=== PATIENT | female | born 1975 | race American Indian/Alaskan Native ===

== ENCOUNTER 2016-12-27 18:24 | Emergency (ER) | payer MEDICAID ==
[2016-12-27 21:55] VITALS: BP 120/80
[2016-12-27] MEDS ORDERED: MOTRIN PO ONE (22:00)
--- NOTE | 2016-12-27 22:05 | Emergency Department Report ---
ED Extremity Problem HPI - General Chief complaint: Extremity Injury, Upper Stated complaint: RT HAND MIDDLE FINGER SLAMMED IN DOOR Time Seen by Provider: 12/27/16 21:48 Source: patient Mode of arrival: Ambulatory Limitations: No Limitations - History of Present Illness Initial comments: PT c/o crush injury to R long finger 1 week and 4 days ago. PT states it is still painful and swollen. PT states she has not been seen for this injury before. PT states she has only injury to R little finger that she did not seek medical care about and it did not heal correctly MD Complaint: joint paint -: Sudden, week(s) (1.5 weeks ) Location: right, upper extremity History of Same: Yes (to R little finger ) Severity scale (0 -10): 10 Quality: sharp Consistency: constant Improves with: nothing Worsens with: palpation Associated Symptoms: denies other symptoms - Related Data Previous Rx's Medication Instructions Recorded Last Taken Type Acetaminophen/Codeine [Tylenol #3] 1 tab PO Q6H PRN #12 tab 12/27/16 Unknown Rx Ibuprofen [Motrin] 600 mg PO Q8H PRN #15 tablet 12/27/16 Unknown Rx Allergies Allergy/AdvReac Type Severity Reaction Status Date / Time No Known Allergies Allergy Verified 12/27/16 19:12 ED Review of Systems ROS: Stated complaint: RT HAND MIDDLE FINGER SLAMMED IN DOOR Other details as noted in HPI Comment: All other systems reviewed and negative Genitourinary: denies: abnormal menses (lmp 3-1-17 ) Musculoskeletal: as per HPI Skin: change in color ED Past Medical Hx - Past Medical History Previous Medical History?: No - Surgical History Past Surgical History?: Yes Additional Surgical History: c-sectiona x1 - Medications Home Medications: Home Medications Medication Instructions Recorded Confirmed Last Taken Type Acetaminophen/Codeine [Tylenol #3] 1 tab PO Q6H PRN #12 tab 12/27/16 Unknown Rx Ibuprofen [Motrin] 600 mg PO Q8H PRN #15 tablet 12/27/16 Unknown Rx ED Physical Exam - General Limitations: No Limitations General appearance: alert, in no apparent distress - Head Head exam: Present: atraumatic, normocephalic - Eye Eye exam: Present: normal appearance. Absent: conjunctival injection - ENT ENT exam: Present: normal exam - Neck Neck exam: Present: normal inspection, full ROM - Respiratory Respiratory exam: Absent: respiratory distress - Cardiovascular Cardiovascular Exam: Present: regular rate, normal rhythm - Extremities Exam Extremities exam: Present: tenderness - Expanded Upper Extremity Exam Right Hand Wrist exam: Present: tenderness, ecchymosis, other (R long finger with bruisng and tenderness to the Ulnar side of the DIP joint. pt with colored fake nails. ). Absent: full ROM (decreased due to pain ), laceration, deformity, crepidus, dislocation, nail avulsion - Back Exam Back exam: Present: normal inspection, full ROM - Neurological Exam Neurological exam: Present: alert, oriented X3 - Psychiatric Psychiatric exam: Present: normal affect, normal mood - Skin Skin exam: Present: warm, dry, ecchymosis ED Course Vital Signs 12/27/16 12/27/16 19:08 21:54 Temperature 98.5 F 99.4 F Pulse Rate 80 89 Respiratory 18 18 Rate Blood Pressure 123/84 Blood Pressure 120/80 [Right] O2 Sat by Pulse 98 99 Oximetry - Reevaluation(s) Reevaluation #1: 12/27/16 22:08 PT aware of my interpretation of the XR. PT aware of plan of care. PT has no questions at this time. - Pulse Oximetry Interpretation Digit-Finger Initial Pulse Oximetry Readin Actions Taken: none ED Medical Decision Making - Radiology Data Radiology results: image reviewed interpreted by me: finger - nap - Differential Diagnosis contusion, fracture Critical care attestation.: If time is entered above; I have spent that time in minutes in the direct care of this critically ill patient, excluding procedure time. ED Disposition Clinical Impression: Finger contusion Qualifiers: Encounter type: initial encounter Finger: middle finger Damage to nail status: without damage Laterality: right Qualified Code(s): S60.031A - Contusion of right middle finger without damage to nail, initial encounter Disposition: DISCHARGED TO HOME OR SELFCARE Is pt being admited?: No Does the pt Need Aspirin: No Condition: Stable Instructions: Jammed Finger (ED), Finger Sprain (ED), RICE Therapy (ED) Additional Instructions: No driving or ETOH after Tylenol # 3 Prescriptions: Acetaminophen/Codeine [Tylenol #3] 1 tab PO Q6H PRN #12 tab PRN Reason: Pain , Severe (7-10) Ibuprofen [Motrin] 600 mg PO Q8H PRN #15 tablet PRN Reason: Pain Referrals: PRIMARY CARE, [Primary Care Provider] - 3-5 Days WILEY BARTON MD [Staff Physician] - 3-5 Days Forms: Work/School Release Form(ED) Time of Disposition: 22:10
--- NOTE | 2016-12-28 08:47 | XRay Report ---
Right third finger: No swelling and no obvious fracture or displacement noted. The bony structures appear well mineralized. Impression: Normal exam.
== END 2016-12-27 22:23 | disposition home or self-care (01) ==
LOC: ED 18:24
DX: S60.031A Contusion of right middle finger without damage to nail, initial encounter (principal); W23.0XXA Caught, crushed, jammed, or pinched between moving objects, initial encounter; Y93.89 Activity, other specified; Y99.9 Unspecified external cause status; Y92.89 Other specified places as the place of occurrence of the external cause

== ENCOUNTER 2017-01-30 18:10 | Emergency (ER) | payer MEDICAID ==
[2017-01-30 18:34] VITALS: BP 117/84
== END 2017-01-30 21:00 | disposition left against medical advice (07) ==
LOC: ED 18:10
DX: M25.551 Pain in right hip (principal); Z53.21 Procedure and treatment not carried out due to patient leaving prior to being seen by health care provider

== ENCOUNTER 2017-03-13 14:23 | Emergency (ER) | payer MEDICAID ==
[2017-03-13] MEDS ORDERED: BICILLIN L-A IM ONE (14:40)
[2017-03-13 14:42] VITALS: BP 130/86
--- NOTE | 2017-03-13 14:42 | Emergency Department Report ---
<DEIDREADELA M - Last Filed: 03/13/17 14:38> ED ENT HPI - General Chief complaint: Sore Throat Stated complaint: POSS STREP THROAT Time Seen by Provider: 03/13/17 14:36 Source: patient Mode of arrival: Ambulatory Limitations: No Limitations - History of Present Illness Initial comments: PT c/o sore throat since Monday. PT states she thought she was getting a cold but then she looked at her throat and she noticed white bumps on her tonsils. Onset/Timin -: Gradual, days(s) Location: throat Severity: severe Severity scale (0 -10): 9 Quality: aching, sharp, constant Worsens with: swallowing, eating Associated Symptoms: cough, pain with swallowing, sore throat. denies: fever - Related Data Previous Rx's Medication Instructions Recorded Last Taken Type Acetaminophen/Codeine [Tylenol #3] 1 tab PO Q6H PRN #12 tab 12/27/16 Unknown Rx Ibuprofen [Motrin] 600 mg PO Q8H PRN #15 tablet 12/27/16 Unknown Rx Allergies Allergy/AdvReac Type Severity Reaction Status Date / Time No Known Allergies Allergy Verified 12/27/16 19:12 ED Dental HPI - General Stated complaint: POSS STREP THROAT Time Seen by Provider: 03/13/17 14:36 - Related Data Previous Rx's Medication Instructions Recorded Last Taken Type Acetaminophen/Codeine [Tylenol #3] 1 tab PO Q6H PRN #12 tab 12/27/16 Unknown Rx Ibuprofen [Motrin] 600 mg PO Q8H PRN #15 tablet 12/27/16 Unknown Rx Allergies Allergy/AdvReac Type Severity Reaction Status Date / Time No Known Allergies Allergy Verified 12/27/16 19:12 ED Review of Systems ROS: Stated complaint: POSS STREP THROAT Other details as noted in HPI Comment: All other systems reviewed and negative Constitutional: denies: fever ENT: throat pain. denies: congestion Respiratory: cough (occasional, hurts throat to cough ), other (sneezing ) Gastrointestinal: denies: abdominal pain, nausea, vomiting, diarrhea ED Past Medical Hx - Past Medical History Hx Hypertension: Yes Hx Diabetes: Yes - Surgical History Additional Surgical History: c-sectiona x1 - Social History Smoking Status: Current Some Day Smoker Substance Use Type: Alcohol - Medications Home Medications: Home Medications Medication Instructions Recorded Confirmed Last Taken Type Acetaminophen/Codeine [Tylenol #3] 1 tab PO Q6H PRN #12 tab 12/27/16 Unknown Rx Ibuprofen [Motrin] 600 mg PO Q8H PRN #15 tablet 12/27/16 Unknown Rx ED Physical Exam - General Limitations: No Limitations, Language Barrier General appearance: alert, in no apparent distress - Head Head exam: Present: atraumatic, normocephalic, normal inspection - Eye Eye exam: Present: normal appearance, PERRL, EOMI. Absent: conjunctival injection - ENT ENT exam: Present: mucous membranes moist, normal external ear exam - Expanded ENT Exam Expanded Mouth exam: Present: normal external inspection. Absent: drooling, trismus Throat exam: Positive: tonsillomegaly, tonsillar exudate. Negative: R peritonsillar mass, L peritonsillar mass - Neck Neck exam: Present: normal inspection, tenderness, full ROM, lymphadenopathy - Respiratory Respiratory exam: Present: normal lung sounds bilaterally, other (no cough noted ). Absent: respiratory distress, wheezes, rhonchi - Cardiovascular Cardiovascular Exam: Present: regular rate, normal rhythm, normal heart sounds - GI/Abdominal GI/Abdominal exam: Present: soft. Absent: tenderness - Extremities Exam Extremities exam: Present: normal inspection, full ROM - Back Exam Back exam: Present: normal inspection, full ROM - Neurological Exam Neurological exam: Present: alert, oriented X3 - Psychiatric Psychiatric exam: Present: normal affect, normal mood - Skin Skin exam: Present: warm, dry, intact, normal color ED Course Vital Signs 03/13/17 14:37 Temperature 98.3 F Pulse Rate 100 H Respiratory 16 Rate Blood Pressure 130/86 O2 Sat by Pulse 100 Oximetry - Reevaluation(s) Reevaluation #1: 03/13/17 14:43 PT aware of dx and plan of care. PT has no questions at this time. Critical care attestation.: If time is entered above; I have spent that time in minutes in the direct care of this critically ill patient, excluding procedure time. ED Disposition Disposition: TO HOME OR SELFCARE Is pt being admited?: No Does the pt Need Aspirin: No Condition: Stable Instructions: Pharyngitis (ED), Tonsillitis (ED) Referrals: TORI DOMINGO MD [Staff Physician] - 3-5 Days Time of Disposition: :42 <ERWIN KHAN - Last Filed: 03/14/17 19:30> ED Medical Decision Making - Medical Decision Making Patient received Bicillin IM
== END 2017-03-13 15:11 | disposition home or self-care (01) ==
LOC: ED 14:23
DX: J02.9 Acute pharyngitis, unspecified (principal); I10 Essential (primary) hypertension; E11.9 Type 2 diabetes mellitus without complications; Z72.0 Tobacco use
CPT/HCPCS: 96372; 99282; J0561

== ENCOUNTER 2017-03-16 19:40 | Emergency (ER) | payer MEDICAID ==
[2017-03-16 19:57] VITALS: BP 124/81
== END 2017-03-16 21:55 | disposition left against medical advice (07) ==
LOC: ED 19:40
DX: R07.0 Pain in throat (principal); Z53.21 Procedure and treatment not carried out due to patient leaving prior to being seen by health care provider

== ENCOUNTER 2018-07-04 16:16 | Emergency (ER) | payer MEDICAID ==
[2018-07-04 16:27] VITALS: BP 127/81
[2018-07-04] MEDS ORDERED: ZOFRAN IV ONE (19:30)
[2018-07-04] MEDS ORDERED: NACL 0.9% 1000 ML 1,000 ML IV ONE (19:30)
[2018-07-04] MEDS ORDERED: DECADRON IV STA (19:30)
--- NOTE | 2018-07-04 19:30 | Emergency Department Report ---
ED Headache HPI - General Chief Complaint: Headache Stated Complaint: HEAD PAIN,STOMACH PAIN Time Seen by Provider: 07/04/18 19:18 Source: patient, family Exam Limitations: no limitations - History of Present Illness Initial Comments: Patient complain of right-sided headache at her [employer] that started this morning at 7:30. She states it is a throbbing pain pain is not relieved with Motrin and Excedrin. She says she has not had a headache like this in the process. Report nausea. Reports some blurred vision this morning but none now. Denies any loss of vision . She states she saw her doctor on Monday and told him about it while she was getting fitted for glasses. no action taken per patient. Agencies says she is a diabetic and she takes metformin and her blood sugar is high at 20 care blood sugar today is 162 in triage. Last menstrual cycle was 07/02/2018. Pain is 8/10 and achy. No alleviating or exacerbating factors. Denies any fever or chills or neck pain or stiffness. Denies any dizziness or vomiting. Denies any sore throat, shortness of breath or chest pain. Timing/Duration: constant, other (7:30 this morning) Quality: severe, achy Head Injury Location: temporal (right) Recent Head Trauma: occasional headaches Modifying Factors: improves with: other (none) Associated Symptoms: denies: confusion, fatigue, facial pain, fever/chills, flushing, loss of consciousness, nausea/vomiting, nasal congestion, nasal drainage, numbness in legs/feet, rash, seizures, sinus infection, stiff neck, vision changes, weakness Allergies/Adverse Reactions: Allergies No Known Allergies Allergy (Verified 12/27/16 19:12) Home Medications: Ambulatory Orders Acetaminophen/Codeine [Tylenol #3] 1 tab PO Q6H PRN #12 tab 12/27/16 Ibuprofen [Motrin] 600 mg PO Q8H PRN #15 tablet 12/27/16 Butalb/Acetaminophen/Caffeine [Fioricet 50-300-40 mg CAP] 1 - 2 cap PO Q6HR PRN #24 cap 07/04/18 Ondansetron [Zofran Odt] 8 mg PO Q8H PRN #30 tab.rapdis 07/04/18 ED Review of Systems ROS: Stated complaint: HEAD PAIN,STOMACH PAIN Other details as noted in HPI Constitutional: denies: chills, fever Eyes: denies: eye pain, eye discharge ENT: denies: ear pain, throat pain, congestion Respiratory: denies: cough, shortness of breath, SOB with exertion, SOB at rest , stridor, wheezing Cardiovascular: denies: chest pain, palpitations, dyspnea on exertion, edema, syncope Gastrointestinal: denies: abdominal pain, nausea, diarrhea Musculoskeletal: denies: back pain, joint swelling, arthralgia, myalgia Skin: denies: rash, lesions Neurological: denies: headache, weakness, paresthesias, abnormal gait ED Past Medical Hx - Past Medical History Previous Medical History?: Yes Hx Hypertension: Yes Hx Diabetes: Yes Hx GERD: Yes Additional medical history: STREPT - Surgical History Past Surgical History?: Yes Additional Surgical History: c-sectiona x1 - Family History Family history: hypertension - Social History Smoking Status: Current Some Day Smoker Substance Use Type: None - Medications Home Medications: Home Medications Medication Instructions Recorded Confirmed Last Taken Type Acetaminophen/Codeine [Tylenol #3] 1 tab PO Q6H PRN #12 tab 12/27/16 Unknown Rx Ibuprofen [Motrin] 600 mg PO Q8H PRN #15 tablet 12/27/16 Unknown Rx Butalb/Acetaminophen/Caffeine 1 - 2 cap PO Q6HR PRN #24 cap 07/04/18 Unknown Rx [Fioricet 50-300-40 mg CAP] Ondansetron [Zofran Odt] 8 mg PO Q8H PRN #30 tab.rapdis 07/04/18 Unknown Rx ED Physical Exam - General Limitations: No Limitations General appearance: alert, in no apparent distress - Head Head exam: Present: atraumatic, normocephalic, normal inspection, other (normal exam) - Eye Eye exam: Present: normal appearance, PERRL, EOMI. Absent: nystagmus, periorbital swelling, periorbital tenderness Pupils: Present: normal accommodation - ENT ENT exam: Present: normal exam, normal orophraynx, mucous membranes moist, TM's normal bilaterally, normal external ear exam, other (maxillary frontal sinuses nontender to palpate. Nasal mucosa normal exam) - Neck Neck exam: Present: normal inspection, full ROM, other (no C-spine tenderness). Absent: tenderness, meningismus, lymphadenopathy, thyromegaly - Respiratory Respiratory exam: Present: normal lung sounds bilaterally. Absent: respiratory distress, chest wall tenderness - Cardiovascular Cardiovascular Exam: Present: regular rate, normal rhythm, normal heart sounds. Absent: systolic murmur, diastolic murmur - GI/Abdominal GI/Abdominal exam: Present: soft, normal bowel sounds. Absent: distended, tenderness, guarding, rebound, rigid, organomegaly, mass - Extremities Exam Extremities exam: Present: normal inspection, full ROM, normal capillary refill , other (No cce. + 2 pulses in all extremities, no neurovascular compromise). Absent: tenderness, pedal edema, joint swelling, calf tenderness - Back Exam Back exam: Present: normal inspection, full ROM, other (ambulates without any difficulties). Absent: tenderness, CVA tenderness (R), CVA tenderness (L), muscle spasm, paraspinal tenderness, vertebral tenderness, rash noted - Neurological Exam Neurological exam: Present: alert, oriented X3, normal gait, reflexes normal. Absent: motor sensory deficit - Expanded Neurological Exam Expanded Neurological exam: Absent: innattentive, memory loss-remote event, memory loss- recent event, ataxia, receptive aphasia, expressive aphasia, total aphasia, tremor Patient oriented to: Present: person, place, time Speech: Present: fluid speech Cranial nerves: EOM's Intact: Normal, Gag Reflex: Normal, Tongue Deviation: Normal, Nystagmus: Normal, Facial Sensation: Normal Cerebellar function: Romberg: Normal Upper motor neuron: Pronator Drift: Normal, Sensory Extinction: Normal Sensory exam: Upper Extremity Light Touch: Normal, Upper Extremity Temperature: Normal, Lower Extremity Light Touch: Normal, Lower Extremity Temperature: Normal Motor strength exam: RUE: 5, LUE: 5, RLE: 5, LLE: 5 Best Eye Response (Joan): (4) open spontaneously Best Motor Response (Joan): (6) obeys commands Best Verbal Response (Joan): (5) oriented [place] Total: 15 - Psychiatric Psychiatric exam: Present: normal affect, normal mood - Skin Skin exam: Present: warm, dry, intact, normal color. Absent: rash ED Course Vital Signs 07/04/18 16:21 Temperature 98.0 F Pulse Rate 81 Respiratory 16 Rate Blood Pressure 127/81 O2 Sat by Pulse 100 Oximetry - Reevaluation(s) Reevaluation #1: 07/04/18 21:30 Patient given Fioricet 2 tablets, Zofran 4 mg IV, Decadron 10 mg IV and 1 L normal saline. No change in neurological status. CT scan is stable and she says she feels better. ED Medical Decision Making - Radiology Data Radiology results: report reviewed CT scan of the head and brain without IV contrast shows no acute findings. Patient: VICTORIA DUGAN MR#: [id number] : 1975 Acct:[id number] Age/Sex: 42 / F ADM Date: 07/04/18 Loc: ED Attending Dr: Ordering Physician: BHARAT ABRAHAM Date of Service: 07/04/18 Procedure(s): CT head/brain wo con Accession Number(s): [id number] cc: BHARAT ABRAHAM FINAL REPORT PROCEDURE: CT HEAD/BRAIN WO CON TECHNIQUE: Computerized tomography of the head was performed without contrast material. HISTORY: headache. COMPARISON: No prior studies are available for comparison. FINDINGS: Skull and scalp: Normal. Paranasal sinuses: Normal. Ventricles and subarachnoid spaces: There is no hydrocephalus or asymmetry.. Cerebrum: No evidence of hemorrhage, acute infarction or mass . Cerebellum and brainstem: No evidence of hemorrhage, acute infarction or mass. Vasculature: Normal. Comments: None. IMPRESSION: There is no acute intracranial abnormality. Transcribed By: CO Dictated By: DARCY WOOD MD Electronically Authenticated By: DARCY WOOD MD Signed Date/Time: 07/04/182046 DD/ 46 TD/TT: 07/04/182046 - Medical Decision Making 42-year-old female here with right temporal headache that she says started at 7: [address] scan of head/brain revealed no acute intracranial or extracranial abdomen mild distress. Assessment/plan Headache-better with Fioricet 2 tablets, Zofran 4 mg IV and Decadron 10 mg IV. Patient will be discharged home on Fioricet and Zofran. She also receive 1 L of normal saline in the emergency room. Patient referred to neurologist since her primary care doctor which she does have one. I discussed the CT scan results, diagnosis and treatment plan and she was understanding. She knows that if her symptoms return to return to the emergency room otherwise follow-up with her primary care neurologist and she agrees. Patient discharged home a prescription for Fioricet and Zofran. - Differential Diagnosis intracranial versus extracranial abnormality, simple headache Critical care attestation.: If time is entered above; I have spent that time in minutes in the direct care of this critically ill patient, excluding procedure time. ED Disposition Clinical Impression: Headache Qualifiers: Headache type: unspecified Headache chronicity pattern: acute headache Intractability: not intractable Qualified Code(s): R51 - Headache Disposition: DC- TO HOME OR SELFCARE Is pt being admited?: No Does the pt Need Aspirin: No Condition: Stable Instructions: Acute Headache (ED) Additional Instructions: Please follow-up with neurologist as instructed. Follow-up Primary care physician in 2 days Take Fioricet and Zofran for headache and nausea. If he condition worsens, return to the emergency room Prescriptions: Butalb/Acetaminophen/Caffeine [Fioricet 50-300-40 mg CAP] 1 - 2 cap PO Q6HR PRN #24 cap PRN Reason: Headache Ondansetron [Zofran Odt] 8 mg PO Q8H PRN #30 tab.rapdis PRN Reason: Nausea And Vomiting Referrals: PRIMARY CARE, [Primary Care Provider] - 07/06/18 CAN MCGREGOR MD [Staff Physician] - 07/06/18 Forms: Work/School Release Form(ED)
[2018-07-04] MEDS ORDERED: FIORICET PO ONE (19:31)
--- NOTE | 2018-07-04 20:48 | Cat Scan Report ---
FINAL REPORT PROCEDURE: CT HEAD/BRAIN WO CON TECHNIQUE: Computerized tomography of the head was performed without contrast material. HISTORY: headache. COMPARISON: No prior studies are available for comparison. FINDINGS: Skull and scalp: Normal. Paranasal sinuses: Normal. Ventricles and subarachnoid spaces: There is no hydrocephalus or asymmetry.. Cerebrum: No evidence of hemorrhage, acute infarction or mass . Cerebellum and brainstem: No evidence of hemorrhage, acute infarction or mass. Vasculature: Normal. Comments: None. IMPRESSION: There is no acute intracranial abnormality.
== END 2018-07-04 21:43 | disposition home or self-care (01) ==
LOC: ED 16:16
DX: R51 Headache (principal); I10 Essential (primary) hypertension; E11.9 Type 2 diabetes mellitus without complications; K21.9 Gastro-esophageal reflux disease without esophagitis; F17.200 Nicotine dependence, unspecified, uncomplicated
CPT/HCPCS: 70450; 82962; 96374; 96375; 99284; J1100; J2405; J7030

== ENCOUNTER 2018-10-04 15:21 | Emergency (ER) | payer MEDICAID ==
[2018-10-04 16:57] LABS: Basophils % (Auto) 0.2 % (0.0-1.8); Eosinophils # (Auto) 0.1 K/mm3 (0.0-0.4); Eosinophils % (Auto) 0.6 % (0.0-4.3); Hematocrit 31.3 % (30.3-42.9); Lymphocytes # (Auto) 0.7 K/mm3 (1.2-5.4); Mean Corpuscular HGB Conc 32 % (30-34); Mean Corpuscular Volume 82 fl (79-97); Monocytes # (Auto) 0.5 K/mm3 (0.0-0.8); Monocytes % (Auto) 4.4 % (0.0-7.3); Platelet Count 365 K/mm3 (140-440); Red Blood Count 3.84 M/mm3 (3.65-5.03); Red Cell Distribution Width 16.9 % (13.2-15.2)
[2018-10-04 17:26] LABS: Alanine Aminotransferase 23 units/L (7-56); BUN/Creatinine Ratio 6; Blood Urea Nitrogen 4 mg/dL (7-17); Calcium 9.2 mg/dL (8.4-10.2); Hemolysis Index 2
[2018-10-04 17:32] LABS: Bilirubin,Urine NEG (Negative); Color,Urine Straw (Yellow)
[2018-10-04 17:33] LABS: Bacteria,Urine 1+ /HPF (Negative); Blood,Urine MOD (Negative); Protein,Urine <15 mg/dL mg/dL (Negative); Urobilinogen,Urine < 2.0 mg/dL (<2.0)
[2018-10-04 17:36] LABS: HCG Qualitative,Urine Negative (Negative); WBC,Urine > 182.0 /HPF (0.0-6.0)
[2018-10-04 18:49] VITALS: BP 153/92
[2018-10-04] MEDS ORDERED: BACTRIM DS PO ONE (19:18)
[2018-10-04] MEDS ORDERED: TYLENOL/CODEINE PO ONE (19:18)
--- NOTE | 2018-10-04 19:21 | Emergency Department Report ---
ED Female HPI - General Chief complaint: Abdominal Pain Stated complaint: FLU LIKE SX Time Seen by Provider: 10/04/18 19:10 Source: patient Mode of arrival: Ambulatory Limitations: No Limitations - History of Present Illness Initial comments: This is a 43-year-old female who presents ED complaining of urinary frequency urgency one week. Patient states that she is pain with urination for the past weakness got worse. Patient states she also saw this drops of blood in urine. Patient is also complaining of body aches generalized and a dry nonproductive cough. She denies fevers/chills/nausea vomiting and diarrhea. Denies vaginal discharge/vaginal bleed. MD Complaint: dysuria - Related Data Previous Rx's Medication Instructions Recorded Last Taken Type Acetaminophen/Codeine [Tylenol #3] 1 tab PO Q6H PRN #12 tab 12/27/16 Unknown Rx Butalb/Acetaminophen/Caffeine 1 - 2 cap PO Q6HR PRN #24 cap 07/04/18 Unknown Rx [Fioricet 50-300-40 mg CAP] Ondansetron [Zofran Odt] 8 mg PO Q8H PRN #30 tab.rapdis 07/04/18 Unknown Rx Dextromethorphan HBr [Tussin Cough] 15 mg PO TID #80 ml 10/04/18 Unknown Rx Ibuprofen [Motrin 600 MG tab] 600 mg PO Q8H PRN #15 tablet 10/04/18 Unknown Rx Phenazopyridine [Pyridium] 200 mg PO BID #10 tab 10/04/18 Unknown Rx Sulfamethoxazole/Trimethoprim 1 each PO BID #14 tablet 10/04/18 Unknown Rx [Bactrim DS TAB] Allergies Allergy/AdvReac Type Severity Reaction Status Date / Time No Known Allergies Allergy Verified 12/27/16 19:12 ED Review of Systems ROS: Stated complaint: FLU LIKE SX Other details as noted in HPI Comment: All other systems reviewed and negative Constitutional: denies: chills, fever, malaise Genitourinary: urgency, dysuria, frequency, hematuria. denies: discharge, dyspareunia ED Past Medical Hx - Past Medical History Previous Medical History?: Yes Hx Hypertension: Yes Hx Diabetes: Yes Hx GERD: Yes Additional medical history: STREPT - Surgical History Past Surgical History?: Yes Additional Surgical History: c-sectiona x1 - Social History Smoking Status: Never Smoker Substance Use Type: None - Medications Home Medications: Home Medications Medication Instructions Recorded Confirmed Last Taken Type Acetaminophen/Codeine [Tylenol #3] 1 tab PO Q6H PRN #12 tab 12/27/16 Unknown Rx Butalb/Acetaminophen/Caffeine 1 - 2 cap PO Q6HR PRN #24 cap 07/04/18 Unknown Rx [Fioricet 50-300-40 mg CAP] Ondansetron [Zofran Odt] 8 mg PO Q8H PRN #30 tab.rapdis 07/04/18 Unknown Rx Dextromethorphan HBr [Tussin Cough] 15 mg PO TID #80 ml 10/04/18 Unknown Rx Ibuprofen [Motrin 600 MG tab] 600 mg PO Q8H PRN #15 tablet 10/04/18 Unknown Rx Phenazopyridine [Pyridium] 200 mg PO BID #10 tab 10/04/18 Unknown Rx Sulfamethoxazole/Trimethoprim 1 each PO BID #14 tablet 10/04/18 Unknown Rx [Bactrim DS TAB] ED Physical Exam - General Limitations: No Limitations General appearance: alert, in no apparent distress - Head Head exam: Present: atraumatic, normocephalic - Eye Eye exam: Present: normal appearance - ENT ENT exam: Present: mucous membranes moist - Neck Neck exam: Present: normal inspection - Respiratory Respiratory exam: Present: normal lung sounds bilaterally. Absent: respiratory distress - Cardiovascular Cardiovascular Exam: Present: regular rate, normal rhythm. Absent: systolic murmur, diastolic murmur, rubs, gallop - GI/Abdominal GI/Abdominal exam: Present: soft, normal bowel sounds - Extremities Exam Extremities exam: Present: normal inspection - Back Exam Back exam: Present: normal inspection - Neurological Exam Neurological exam: Present: alert, oriented X3 - Psychiatric Psychiatric exam: Present: normal affect, normal mood - Skin Skin exam: Present: warm, dry, intact, normal color. Absent: rash ED Course Vital Signs 10/04/18 10/04/18 15:49 18:48 Temperature 98.4 F 99.0 F Pulse Rate 115 H 117 H Respiratory 18 18 Rate Blood Pressure 142/95 Blood Pressure 153/92 [Left] O2 Sat by Pulse 97 98 Oximetry ED Medical Decision Making - Lab Data Result diagrams: 10/04/18 16:19 10/04/18 16:19 Laboratory Last Values WBC 10.4 K/mm3 (4.5-11.0) 10/04/18 16:19 RBC 3.84 M/mm3 (3.65-5.03) 10/04/18 16:19 Hgb 10.0 gm/dl (10.1-14.3) L 10/04/18 16:19 Hct 31.3 % (30.3-42.9) 10/04/18 16:19 MCV 82 fl (79-97) 10/04/18 16:19 MCH 26 pg (28-32) L 10/04/18 16:19 MCHC 32 % (30-34) 10/04/18 16:19 RDW 16.9 % (13.2-15.2) H 10/04/18 16:19 Plt Count 365 K/mm3 (140-440) 10/04/18 16:19 Lymph % (Auto) 7.0 % (13.4-35.0) L 10/04/18 16:19 [place] % (Auto) 4.4 % (0.0-7.3) 10/04/18 16:19 Eos % (Auto) 0.6 % (0.0-4.3) 10/04/18 16:19 Baso % (Auto) 0.2 % (0.0-1.8) 10/04/18 16:19 Lymph # 0.7 K/mm3 (1.2-5.4) L 10/04/18 16:19 [place] # 0.5 K/mm3 (0.0-0.8) 10/04/18 16:19 Eos # 0.1 K/mm3 (0.0-0.4) 10/04/18 16:19 Baso # 0.0 K/mm3 (0.0-0.1) 10/04/18 16:19 Seg Neutrophils % 87.8 % (40.0-70.0) H 10/04/18 16:19 Seg Neutrophils # 9.2 K/mm3 (1.8-7.7) H 10/04/18 16:19 Sodium 135 mmol/L (137-145) L 10/04/18 16:19 Potassium 3.4 mmol/L (3.6-5.0) L 10/04/18 16:19 Chloride 88.4 mmol/L (98-107) L 10/04/18 16:19 Carbon Dioxide 30 mmol/L (22-30) 10/04/18 16:19 Anion Gap 20 mmol/L 10/04/18 16:19 BUN 4 mg/dL (7-17) L 10/04/18 16:19 Creatinine 0.7 mg/dL (0.7-1.2) 10/04/18 16:19 Estimated GFR > 60 ml/min 10/04/18 16:19 BUN/Creatinine Ratio 6 % 10/04/18 16:19 Glucose 187 mg/dL (65-100) H 10/04/18 16:19 Calcium 9.2 mg/dL (8.4-10.2) 10/04/18 16:19 Total Bilirubin 0.70 mg/dL (0.1-1.2) 10/04/18 16:19 AST 34 units/L (5-40) 10/04/18 16:19 ALT 23 units/L (7-56) 10/04/18 16:19 Alkaline Phosphatase 157 units/L (35-129) H 10/04/18 16:19 Total Protein 7.7 g/dL (6.3-8.2) 10/04/18 16:19 Albumin 4.0 g/dL (3.9-5) 10/04/18 16:19 Albumin/Globulin Ratio 1.1 % 10/04/18 16:19 Urine Color Straw (Yellow) 10/04/18 17:00 Urine Turbidity Clear (Clear) 10/04/18 17:00 Urine pH 8.0 (5.0-7.0) H 10/04/18 17:00 Ur Specific [place] 1.004 (1.003-1.030) 10/04/18 17:00 Urine Protein <15 mg/dl mg/dL (Negative) 10/04/18 17:00 Urine Glucose (UA) Neg mg/dL (Negative) 10/04/18 17:00 Urine Ketones Neg mg/dL (Negative) 10/04/18 17:00 Urine Blood Mod (Negative) 10/04/18 17:00 Urine Nitrite Neg (Negative) 10/04/18 17:00 Urine Bilirubin Neg (Negative) 10/04/18 17:00 Urine Urobilinogen < 2.0 mg/dL (<2.0) 10/04/18 17:00 Ur Leukocyte Esterase Lg (Negative) 10/04/18 17:00 Urine WBC (Auto) > 182.0 /HPF (0.0-6.0) H 10/04/18 17:00 Urine RBC (Auto) 4.0 /HPF (0.0-6.0) 10/04/18 17:00 U Epithel Cells (Auto) 1.0 /HPF (0-13.0) 10/04/18 17:00 Urine Bacteria (Auto) 1+ /HPF (Negative) 10/04/18 17:00 Urine HCG, Qual Negative (Negative) 10/04/18 17:00 - Medical Decision Making 43-year-old female presents with a bacterial urinary tract infection ED course: Patient received an antibiotic dose and Tylenol with codeine during ED stay Urinalysis is positive for bacteria, WBC, leukocyte esterase I discussed this findings with the patient. Discussed increase hydration with the patient. I discussed the patient to make sure she completes all of the antibiotic dose even until symptoms resolve. I discussed with the patient on Pyridium will turn his urine orangeish color but will stop once he stops taking pyridium Patient is in no acute distress, patient also has on instructions were given to him. He had on exam for ED stay. Critical care attestation.: If time is entered above; I have spent that time in minutes in the direct care of this critically ill patient, excluding procedure time. ED Disposition Clinical Impression: UTI (urinary tract infection), Dysuria Disposition: - TO HOME OR SELFCARE Is pt being admited?: No Does the pt Need Aspirin: No Condition: Stable Instructions: Abdominal Pain (ED), Dysuria (ED), Urinary Tract Infection in Women (ED), Viral Syndrome (ED) Additional Instructions: Make sure to follow up with the primary care physician as discussed. Take all your medications as you've been prescribed. If you have any worsening symptoms or develop new symptoms please return to ED immediately. Prescriptions: Dextromethorphan HBr [Tussin Cough] 15 mg PO TID #80 ml Ibuprofen [Motrin 600 MG tab] 600 mg PO Q8H PRN #15 tablet PRN Reason: Pain Phenazopyridine [Pyridium] 200 mg PO BID #10 tab Sulfamethoxazole/Trimethoprim [Bactrim DS TAB] 1 each PO BID #14 tablet Referrals: PRIMARY CARE, [Primary Care Provider] - 3-5 Days [facility] [Outside] - 3-5 Days [facility] [Outside] - 3-5 Days Forms: Work/School Release Form(ED) Time of Disposition: 20:18
[2018-10-04] MEDS ORDERED: PYRIDIUM PO ONE (19:30)
== END 2018-10-04 20:40 | disposition home or self-care (01) ==
LOC: ED 15:21
DX: N39.0 Urinary tract infection, site not specified (principal); I10 Essential (primary) hypertension; E11.9 Type 2 diabetes mellitus without complications; K21.9 Gastro-esophageal reflux disease without esophagitis
CPT/HCPCS: 36415; 80053; 81001; 81025; 85025; 99283

== ENCOUNTER 2018-10-30 10:59 | Outpatient (CLI) | payer MEDICAID ==
[2018-10-30 11:42] LABS: Hematocrit 31.1 % (30.3-42.9); Hemoglobin 9.6 gm/dl (10.1-14.3); Mean Corpuscular HGB Conc 31 % (30-34); Mean Corpuscular Volume 81 fl (79-97); Platelet Count 314 K/mm3 (140-440); Red Blood Count 3.84 M/mm3 (3.65-5.03); Red Cell Distribution Width 17.2 % (13.2-15.2)
[2018-10-30 12:06] LABS: Alanine Aminotransferase 17 units/L (7-56); Albumin 4.2 g/dL (3.9-5); BUN/Creatinine Ratio 8; Blood Urea Nitrogen 6 mg/dL (7-17); Hemolysis Index 0
--- NOTE | 2018-10-30 13:12 | Ultrasound Report ---
ULTRASOUND RENAL BILATERAL ULTRASOUND BLADDER RESIDUAL HISTORY: Abnormal results of kidney function studies. TECHNIQUE: transabdominal ultrasound with color Doppler interrogation. FINDINGS: The right kidney measures 10.5 x 4.8 x 5.1cm. Right renal cortex: 1.4cm. The left kidney measures 10.8 x 5.7 x 5.8cm. Left renal cortex: 1.4cm. Scans of the kidneys show normal renal contours. There is normal central calyceal clustering and good preservation of the cortical thickness. There is no evidence of mass or hydronephrosis. The views of the bladder and the region of the ureters appear normal. Prevoid bladder volume measures 328 cc. Postvoid residual measures 28 cc. IMPRESSION: Unremarkable renal ultrasound. Small postvoid residual measuring 28 cc.
[2018-10-30 16:05] LABS: Hepatitis B Surface Antigen Non-Reactive (Negative); Hepatitis C Virus Antibody Non-Reactive (NonReactive)
[2018-11-01 21:59] LABS: ANA Screen, IFA Positive (Negative)
[2018-11-03 11:45] LABS: Myeloperoxidase Antibody <1.0 AI (<1.0)
== END 2018-10-30 11:00 | disposition home or self-care (01) ==
LOC: US 10:59
PROVIDERS: ATTEND Internal Medicine
DX: R94.4 Abnormal results of kidney function studies (principal); E11.22 Type 2 diabetes mellitus with diabetic chronic kidney disease; I12.9 Hypertensive chronic kidney disease with stage 1 through stage 4 chronic kidney disease, or unspecified chronic kidney disease; N18.9 Chronic kidney disease, unspecified; N39.0 Urinary tract infection, site not specified; R31.9 Hematuria, unspecified; K21.9 Gastro-esophageal reflux disease without esophagitis
CPT/HCPCS: 36415; 76770; 76857; 80053; 80074; 85027; 86021; 86038; 86706; 89050

== ENCOUNTER 2019-03-11 11:46 | Outpatient (CLI) | payer MEDICAID ==
[2019-03-11 12:32] LABS: Hematocrit 29.2 % (30.3-42.9); Hemoglobin 9.2 gm/dl (10.1-14.3); Mean Corpuscular HGB Conc 31 % (30-34); Mean Corpuscular Volume 74 fl (79-97); Platelet Count 328 K/mm3 (140-440); Red Blood Count 3.95 M/mm3 (3.65-5.03); Red Cell Distribution Width 17.1 % (13.2-15.2)
[2019-03-11 12:35] LABS: Bacteria,Urine 1+ /HPF (Negative); Bilirubin,Urine NEG (Negative); Blood,Urine SM (Negative); Color,Urine Straw (Yellow); Hyaline Casts,Urine 1 /LPF; Protein,Urine <15 mg/dL mg/dL (Negative); Urobilinogen,Urine < 2.0 mg/dL (<2.0)
[2019-03-11 12:57] LABS: Alanine Aminotransferase 17 units/L (7-56); Albumin 3.8 g/dL (3.9-5); BUN/Creatinine Ratio 12; Blood Urea Nitrogen 11 mg/dL (7-17); Calcium 9.2 mg/dL (8.4-10.2); Hemolysis Index 0
[2019-03-11 12:58] LABS: Creatinine,Urine 88.5 mg/dL (0.1-20.0); Protein/Creatinine Ratio,Urine 0.09
[2019-03-17 13:42] LABS: ANA Screen, IFA Positive (Negative)
== END 2019-03-11 11:47 | disposition home or self-care (01) ==
LOC: LAB 11:46
PROVIDERS: ATTEND Internal Medicine Nephrology
DX: E11.22 Type 2 diabetes mellitus with diabetic chronic kidney disease (principal); I12.9 Hypertensive chronic kidney disease with stage 1 through stage 4 chronic kidney disease, or unspecified chronic kidney disease; N18.9 Chronic kidney disease, unspecified; R94.4 Abnormal results of kidney function studies; N39.0 Urinary tract infection, site not specified; R31.29 Other microscopic hematuria; K21.9 Gastro-esophageal reflux disease without esophagitis
CPT/HCPCS: 36415; 80053; 81001; 82570; 84156; 85027; 86038; 87086